=== PATIENT | female | born 1980 | race American Indian/Alaskan Native ===

== ENCOUNTER 2020-01-09 01:15 | Emergency (ER) | payer OTHER ==
[2020-01-09] MEDS ORDERED: ASPIRIN 325 MG TAB PO ONE (01:45)
[2020-01-09 02:02] LABS: Basophils % (Auto) 0.2 % (0.0-1.8); Eosinophils % (Auto) 0.7 % (0.0-4.3); Lymphocytes # (Auto) 0.8 K/mm3 (1.2-5.4); Lymphocytes % (Auto) 12.1 % (13.4-35.0); Mean Corpuscular HGB Conc 36 % (30-34); Mean Corpuscular Volume 86 fl (79-97); Monocytes # (Auto) 0.2 K/mm3 (0.0-0.8); Monocytes % (Auto) 3.8 % (0.0-7.3); Platelet Count 278 K/mm3 (140-440); Red Blood Count 4.42 M/mm3 (3.65-5.03); Red Cell Distribution Width 13.3 % (13.2-15.2)
[2020-01-09 02:11] LABS: Hematocrit 38.2 % (30.3-42.9); Hemoglobin 13.7 gm/dl (10.1-14.3)
[2020-01-09 02:22] LABS: BUN/Creatinine Ratio 12; Blood Urea Nitrogen 12 mg/dL (7-17); Calcium 9.5 mg/dL (8.4-10.2); Hemolysis Index 4
--- NOTE | 2020-01-09 03:04 | XRay Report ---
CHEST 1 VIEW INDICATION / CLINICAL INFORMATION: Chest Pain. COMPARISON: None available. FINDINGS: SUPPORT DEVICES: None. HEART / MEDIASTINUM: No significant abnormality. LUNGS / PLEURA: No significant pulmonary or pleural abnormality.. No pneumothorax. ADDITIONAL FINDINGS: No significant additional findings. IMPRESSION: 1. No acute findings. Signer Name: Nino Almaraz MD Signed: 01/09/2020 2:59 AM Workstation Name: [id number]
[2020-01-09] MEDS ORDERED: MORPHINE 4 MG/1 ML INJ IV ONE (03:08)
--- NOTE | 2020-01-09 03:17 | Emergency Department Report ---
HPI - General Chief Complaint: Chest Pain Time Seen by Provider: 01/09/20 02:56 - HPI HPI: This is a 39-year-old -[place] female presents to the emergency department with complaint of midsternal chest pain with some radiation towards the mid back, as well as some shortness of breath, that started earlier this evening. Patient says that she had a tetanus booster and flu shot earlier in the day and does not know if that is the cause of her symptoms. She did not take anything for her symptoms prior to presentation. Her symptoms worsen when she is laying flat or on either side of her body. She has a past medical history of diabetes and high cholesterol. She denies any tobacco or illicit drug use. She denies any family history of early cardiac events or [place]. No known alleviating factors. She denies any fever, cough, lower extremity s welling, nausea, vomiting. No recent travel or sick contacts at home. Her primary care physician is a Dr. Kumar. ED Past Medical Hx - Past Medical History Previous Medical History?: Yes Hx Diabetes: Yes Additional medical history: High Cholesterol - Surgical History Past Surgical History?: Yes Additional Surgical History: - Social History Smoking Status: Never Smoker - Medications Home Medications: Home Medications Medication Instructions Recorded Confirmed Last Taken Type Ibuprofen [Motrin 800 MG tab] 800 mg PO Q8HR PRN #20 tablet 01/09/20 Unknown Rx ED Review of Systems ROS: Stated complaint: CHEST PAIN Other details as noted in HPI Comment: All other systems reviewed and negative Constitutional: denies: chills, fever Eyes: denies: eye pain, vision change ENT: denies: ear pain, throat pain Respiratory: shortness of breath. denies: cough Cardiovascular: chest pain. denies: palpitations Gastrointestinal: denies: abdominal pain, vomiting Genitourinary: denies: dysuria, discharge Musculoskeletal: denies: back pain, arthralgia Skin: denies: rash, lesions Neurological: denies: headache, weakness Physical Exam - Physical Exam Vital Signs: Vital Signs 01/09/20 01:34 Temperature 99.5 F Pulse Rate 129 H Respiratory 18 Rate Blood Pressure 117/74 O2 Sat by Pulse 96 Oximetry Physical Exam: GENERAL: The patient is well-developed well-nourished. HENT: Normocephalic. Atraumatic. Patient has moist mucous membranes. EYES: Extraocular motions are intact. NECK: Supple. Trachea is midline. CHEST/LUNGS: Clear to auscultation. There is no respiratory distress noted. HEART/CARDIOVASCULAR: Regular. There is mild to moderate tachycardia. There is no murmur. ABDOMEN: Abdomen is soft, nontender. Patient has normal bowel sounds. SKIN: Skin is warm and dry. NEURO: The patient is awake, alert, and oriented. The patient is cooperative. The patient has no focal neurologic deficits. Normal speech. MUSCULOSKELETAL: There is no tenderness or deformity. There is no limitation range of motion. ED Course Vital Signs 01/09/20 01:34 Temperature 99.5 F Pulse Rate 129 H Respiratory 18 Rate Blood Pressure 117/74 O2 Sat by Pulse 96 Oximetry - Reevaluation(s) Reevaluation #1: 01/09/20 06:32 Lab Results 01/09/20 01/09/20 01/09/20 Range/Units 01:47 01:47 01:47 WBC 6.5 (4.5-11.0) K/mm3 RBC 4.42 (3.65-5.03) M/mm3 Hgb 13.7 (10.1-14.3) gm/dl Hct 38.2 (30.3-42.9) % MCV 86 (79-97) fl MCH 31 (28-32) pg MCHC 36 H (30-34) % RDW 13.3 (13.2-15.2) % Plt Count 278 (140-440) K/mm3 Lymph % (Auto) 12.1 L (13.4-35.0) % [place] % (Auto) 3.8 (0.0-7.3) % Eos % (Auto) 0.7 (0.0-4.3) % Baso % (Auto) 0.2 (0.0-1.8) % Lymph # (Auto) 0.8 L (1.2-5.4) K/mm3 [place] # (Auto) 0.2 (0.0-0.8) K/mm3 Eos # (Auto) 0.0 (0.0-0.4) K/mm3 Baso # (Auto) 0.0 (0.0-0.1) K/mm3 Seg Neutrophils % 83.2 H (40.0-70.0) % Seg Neutrophils # 5.4 (1.8-7.7) K/mm3 D-Dimer (0-234) ng/mlDDU Sodium 137 (137-145) mmol/L Potassium 3.7 (3.6-5.0) mmol/L Chloride 96.4 L (98-107) mmol/L Carbon Dioxide 21 L (22-30) mmol/L Anion Gap 23 mmol/L BUN 12 (7-17) mg/dL Creatinine 1.0 (0.6-1.2) mg/dL Estimated GFR > 60 ml/min BUN/Creatinine Ratio 12 % Glucose 88 (65-100) mg/dL Calcium 9.5 (8.4-10.2) mg/dL Troponin T < 0.010 (0.00-0.029) ng/mL NT-Pro-B Natriuret Pep (0-450) pg/mL HCG, Qual Negative (Negative) 01/09/20 01/09/20 Range/Units 03:58 04:59 WBC (4.5-11.0) K/mm3 RBC (3.65-5.03) M/mm3 Hgb (10.1-14.3) gm/dl Hct (30.3-42.9) % MCV (79-97) fl MCH (28-32) pg MCHC (30-34) % RDW (13.2-15.2) % Plt Count (140-440) K/mm3 Lymph % (Auto) (13.4-35.0) % [place] % (Auto) (0.0-7.3) % Eos % (Auto) (0.0-4.3) % Baso % (Auto) (0.0-1.8) % Lymph # (Auto) (1.2-5.4) K/mm3 [place] # (Auto) (0.0-0.8) K/mm3 Eos # (Auto) (0.0-0.4) K/mm3 Baso # (Auto) (0.0-0.1) K/mm3 Seg Neutrophils % (40.0-70.0) % Seg Neutrophils # (1.8-7.7) K/mm3 D-Dimer 127 (0-234) ng/mlDDU Sodium (137-145) mmol/L Potassium (3.6-5.0) mmol/L Chloride (98-107) mmol/L Carbon Dioxide (22-30) mmol/L Anion Gap mmol/L BUN (7-17) mg/dL Creatinine (0.6-1.2) mg/dL Estimated GFR ml/min BUN/Creatinine Ratio % Glucose (65-100) mg/dL Calcium (8.4-10.2) mg/dL Troponin T < 0.010 (0.00-0.029) ng/mL NT-Pro-B Natriuret Pep 71.63 (0-450) pg/mL HCG, Qual (Negative) ED Medical Decision Making - Lab Data Result diagrams: 01/09/20 01:47 01/09/20 01:47 - EKG Data -: EKG Interpreted by Me EKG shows normal: sinus rhythm, axis, intervals, QRS complexes, ST-T waves (Early repolarization) Rate: tachycardia (126 bpm) - EKG Data When compared to previous EKG there are: previous EKG unavailable Interpretation: other (Sinus tachycardia at 126 bpm, normal axis, normal intervals, early repolarization) - Radiology Data Radiology results: image reviewed interpreted by me: Chest x-ray does not show any acute process. There are no pleural effusions, obvious pneumonia and there is no pneumothorax. No significant cardiomegaly. - Medical Decision Making This patient presents to the emergency department with a complaint of midsternal chest pain and some shortness of breath that started earlier today. On examination the heart and lung sounds are normal to auscultation. EKG does not have any morphology consistent with ST elevation myocardial infarction or any significant dysrhythmia. Chest x-ray does not show any pneumonia, pleural effusions, pneumothorax, focal consolidation, or any other acute process. Patient's labs have been unremarkable thus far including CBC, metabolic panel, negative troponins x2, negative D-dimer and a low BNP level. Patient was given a dose of IV analgesia and some IV fluid resuscitation and upon reevaluation she is feeling greatly improved. The patient was seen sleeping and/or resting comfortably multiple times throughout her ED course. She is low on the heart and RAUL scores. The patient is also low on the Wells score criteria and pulmo nary embolism rule out criteria, and on top of that she had a low/negative D- dimer level. For all these reasons patient appears safe for discharge home at this time. Her contact information has been sent over to [facility] and [facility] [place], and someone from their office should be contacting her shortly for close outpatient follow-up as part of our hospitals low risk chest pain protocol. The patient has been instructed to return to the emergency department with any worsening of her symptoms or with any acute distress. Critical Care Time: No Critical care attestation.: If time is entered above; I have spent that time in minutes in the direct care of this critically ill patient, excluding procedure time. ED Disposition Clinical Impression: Chest pain Qualifiers: Chest pain type: unspecified Qualified Code(s): R07.9 - Chest pain, unspecified Disposition: DC- TO HOME OR SELFCARE Is pt being admited?: No Condition: Stable Instructions: Chest Pain (ED) Additional Instructions: Please follow-up with a primary care physician in the next few days. I have sent your contact information to [facility] [place], and someone from their office should be contacting you shortly for close outpatient follow-up. Just in case, I will also give you a referral for one of their repair service clerk, Dr. Wade. Return to the emergency department with any worsening of your symptoms, new or concerning symptoms not addressed during this current emergency department visit, or with any acute distress. Prescriptions: Ibuprofen [Motrin 800 MG tab] 800 mg PO Q8HR PRN #20 tablet PRN Reason: Pain , Severe (7-10) Referrals: PRIMARY CARE, [Primary Care Provider] - 2-3 Days SHANTEL WADE MD [Staff Physician] - 2-3 Days Time of Disposition: 06:19 Heart Score - HEART Score History: Slightly suspicious EKG: Normal Age: < 45 Risk factors: 1-2 risk factors Troponin: < normal limit HEART Score: 1 RAUL score - Raul Score Age > 65: (0) No Aspirin use within the Past 7 Days: (0) No 3 or more CAD Risk Factors: (0) No 2 or more Angina events in past 24 hrs: (1) Yes Known CAD with more than 50% Stenosis: (0) No Elevated Cardiac Markers: (0) No ST Deviation Greater than 0.5mm: (0) No RAUL Score: 1
[2020-01-09] MEDS ORDERED: SODIUM CHLORIDE 0.9% 500 ML 500 ML IV ONE ×2 (03:49→06:03)
[2020-01-09] MEDS ORDERED: KETOROLAC 30 MG/1 ML INJ IV ONE (06:18)
[2020-01-09 07:04] VITALS: BP 108/64
== END 2020-01-09 07:17 | disposition home or self-care (01) ==
LOC: ED 01:15
DX: R07.9 Chest pain, unspecified (principal); E11.9 Type 2 diabetes mellitus without complications; E78.00 Pure hypercholesterolemia, unspecified; Z79.899 Other long term (current) drug therapy; Z98.890 Other specified postprocedural states; Z88.2 Allergy status to sulfonamides; Z88.8 Allergy status to other drugs, medicaments and biological substances
CPT/HCPCS: 36415; 71045; 80048; 83880; 84484; 84703; 85025; 85379; 93005; 96361; 96374; 96375; 99284; J1885; J2270; J7040